=== PATIENT | male | born 1975 | race African-American/Black ===

== ENCOUNTER 2018-10-02 00:24 | Emergency (ER) | payer OTHER ==
[2018-10-02 00:38] VITALS: TEMP 98.6; BMI 24.0
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
[2018-10-02] MEDS ORDERED: SILVER SULFADIAZINE 1% TOP CREAM 50 GM JAR TP ONE ×2 (03:18→03:38)
[2018-10-02] MEDS ORDERED: IBUPROFEN 600 MG TABLET (FP) PO ONE ×2 (03:21→03:38)
[2018-10-02 04:10] VITALS: BP 108/62; PULSE 68
== END 2018-10-02 04:10 | disposition home or self-care (01) ==
LOC: JER 00:24
PROC: 2W2CX4Z Dressing of Right Lower Arm using Bandage (ICD-10-PCS; principal; 2018-10-02)
DX: T22.511A Corrosion of first degree of right forearm, initial encounter (principal); T32.0 Corrosions involving less than 10% of body surface; M25.561 Pain in right knee; V43.52XA Car driver injured in collision with other type car in traffic accident, initial encounter; W22.11XA Striking against or struck by driver side automobile airbag, initial encounter; Y92.414 Local residential or business street as the place of occurrence of the external cause; Y93.89 Activity, other specified; Y99.8 Other external cause status
CPT/HCPCS: 99282-25